=== PATIENT | female | born 1980 | race American Indian/Alaskan Native ===

== ENCOUNTER 2019-05-04 17:17 | Emergency (ER) | payer OTHER ==
[2019-05-04 17:39] VITALS: BP 131/89
--- NOTE | 2019-05-04 17:41 | Event Note ---
ED Screening Note Date of service: 05/04/19 Time: 17:38 ED Screening Note: This is a 38 y.o. F. that presents to the ER with dental pain that started last night. Patient had 2 teeth pulled #14 & #15 extracted in [place] last week. States pain was controlled until last night. This initial assessment/diagnostic orders/clinical plan/treatment(s) is/are subject to change based on patients health status, clinical progression and re- assessment by fellow clinical providers in the ED. Further treatment and workup at subsequent clinical providers discretion. Patient/guardian urged not to elope from the ED as their condition may be serious if not clinically assessed and managed. Initial orders include:
[2019-05-04] MEDS ORDERED: IBUPROFEN 800 MG TAB PO ONE (20:02)
[2019-05-04] MEDS ORDERED: HYDROcodone/ACETAMINOPHEN 5-325 MG TAB PO ONE (20:02)
--- NOTE | 2019-05-04 20:08 | Emergency Department Report ---
HPI - General Chief Complaint: Dental/Oral Time Seen by Provider: 05/04/19 17:37 - HPI HPI: Room 33 The patient is a 38-year-old female presenting with chief complaint of dental pain. The patient states she is visiting from [place] and approximately one week ago she had a tooth removed because it was cracked. Patient states she is not given a prescription for antibiotic pain medication was told to take ibuprofen. Patient states last night pain worsened and ibuprofen is not helping. She states the pain has been throbbing in nature. Patient states she is also notes a small amount of swelling in the region of left maxillary sinus Location: [See above] Duration: [See above] Quality: [See above] Severity: [See above] Timing: [See above] Context: [See above] Modifying factors: [See above] Associated signs and symptoms: [see above] ED Past Medical Hx - Past Medical History Hx Diabetes: Yes - Surgical History Additional Surgical History: hysterectomy, - Family History Family history: no significant - Social History Smoking Status: Never Smoker Substance Use Type: Alcohol (occasional) - Medications Home Medications: Home Medications Medication Instructions Recorded Confirmed Last Taken Type Amoxicillin [Amoxicillin TAB] 875 mg PO BID #14 tablet 05/04/19 Unknown Rx HYDROcodone/APAP 5-325 [[place] 1 - 2 each PO Q6HR PRN #14 tablet 05/04/19 Unknown Rx 5/325] Ibuprofen [Motrin 800 MG tab] 800 mg PO Q8HR PRN #20 tablet 05/04/19 Unknown Rx ED Review of Systems ROS: Stated complaint: SWOLLEN FACE/PULLED TOOTH LAST WEEK Other details as noted in HPI Constitutional: no symptoms reported Eyes: denies: eye pain ENT: dental pain Respiratory: no symptoms reported Cardiovascular: denies: chest pain Endocrine: no symptoms reported Gastrointestinal: denies: abdominal pain Genitourinary: denies: dysuria Musculoskeletal: denies: back pain Physical Exam - Physical Exam Vital Signs: Vital Signs 05/04/19 17:37 Temperature 97.9 F Pulse Rate 98 H Respiratory 18 Rate Blood Pressure 131/89 O2 Sat by Pulse 99 Oximetry Physical Exam: GENERAL: The patient is well-developed well-nourished []. [] HEENT: Normocephalic. Atraumatic. Extraocular motions are intact. Poor dentit ion. Teeth 12 through 16 appear broken or removed NECK: Supple. Trachea midline CHEST/LUNGS: There is no respiratory distress noted. SKIN: There is no rash. There is no edema. There is no diaphoresis. NEURO: The patient is awake, alert, and oriented. The patient is cooperative. The patient has normal speech MUSCULOSKELETAL: There is no evidence of acute injury. ED Course Vital Signs 05/04/19 17:37 Temperature 97.9 F Pulse Rate 98 H Respiratory 18 Rate Blood Pressure 131/89 O2 Sat by Pulse 99 Oximetry ED Medical Decision Making - Differential Diagnosis dental pain Critical care attestation.: If time is entered above; I have spent that time in minutes in the direct care of this critically ill patient, excluding procedure time. ED Disposition Clinical Impression: Dental implant pain Disposition: TO HOME OR SELFCARE Is pt being admited?: No Does the pt Need Aspirin: No Condition: Stable Additional Instructions: Return to the emergency department should you develop worsening symptoms, inability to tolerate food or liquids, high fever or any other concerns Prescriptions: Amoxicillin [Amoxicillin TAB] 875 mg PO BID #14 tablet Ibuprofen [Motrin 800 MG tab] 800 mg PO Q8HR PRN #20 tablet PRN Reason: Pain, Moderate (4-6) HYDROcodone/APAP 5-325 [[place] 5/325] 1 - 2 each PO Q6HR PRN #14 tablet PRN Reason: Pain Referrals: [facility] [Outside] - 3-5 Days Time of Disposition: 20:10
== END 2019-05-04 20:27 | disposition home or self-care (01) ==
LOC: ED 17:17
DX: K08.89 Other specified disorders of teeth and supporting structures (principal); E11.9 Type 2 diabetes mellitus without complications
CPT/HCPCS: 99282